=== PATIENT | male | born 1990 | race Hispanic/Latino ===

== ENCOUNTER 2022-12-08 18:56 | Emergency (ER) | payer OTHER ==
[~2022-12-08] VITALS: Ht 167.6 cm; Wt 83.9 kg
[2022-12-08 19:24] VITALS: BP 135/88
== END 2022-12-08 20:28 | disposition left against medical advice (07) ==
LOC: EDH 18:56
DX: R06.02 Shortness of breath (principal); Z53.21 Procedure and treatment not carried out due to patient leaving prior to being seen by health care provider